=== PATIENT | female | born 1940 | race Caucasian/White ===

== ENCOUNTER 2018-10-12 00:44 | Emergency (ER) | payer MEDICARE, OTHER ==
[2018-10-12] MEDS ORDERED: methylPREDNISolone Sodium Succinate 125 MG/2 ML SDV IVPUSH ONE (01:14)
[2018-10-12] MEDS ORDERED: Albuterol/Ipratropium 3.0-0.5 MG/3 ML Neb Soln NEB ONE (01:14)
[2018-10-12] MEDS ORDERED: Sodium Chloride 0.9% 10 ML Syringe FLUSH PRN (01:14)
--- NOTE | 2018-10-12 01:21 | EDM.PDOC ---
ED HPI GENERAL MEDICAL PROBLEM - General Chief Complaint: Respiratory Problem Stated Complaint: SOB Time Seen by Provider: 10/12/18 01:12 Source of Information: Reports: Patient, Family (Daughter), RN Notes Reviewed - History of Present Illness INITIAL COMMENTS - FREE TEXT/NARRATIVE: 78-year-old female comes in with shortness of breath. She first became ill about 8-10 days ago. She was first hospitalized at [facility] with influenza and then pneumonia. Apparently was transferred to [facility] at some point and just discharged from [facility] yesterday afternoon. She states that she been off oxygen for about 2 days and seemed to be okay although not up to prehospital status. She then has come home to her daughter's residence here in [place] to live with her until getting back to normal. However trying to sleep tonight she became more short of breath and comes now to the ED with that concern. No chest pain. No recent fever or chills. She still does have a mildly scratchy throat. She was getting neb treatments in the hospital but was not sent home with a nebulizer. She states she has history of "scarring of her lungs". She does not smoke. She does have history of asthma. She also has history of bladder cancer with removal of her bladder last April about 6 months ago and prior chemotherapy. She states she also was anemic when admitted to the [facility] and given 2 units of blood at that time. Back Pain Score (Numeric/FACES): 4 - Related Data Allergies Allergy/AdvReac Type Severity Reaction Status Date / Time Penicillins Allergy Hives Verified 10/12/18 00:53 Home Meds: Home Meds predniSONE [Prednisone] 20 mg PO DAILY #5 tablet 10/12/18 [Rx] Past Medical History HEENT History: Reports: Hard of Hearing, Impaired Vision Other HEENT History: Wears glasses Cardiovascular History: Reports: High Cholesterol, Hypertension Respiratory History: Reports: Other (See Below) Other Respiratory History: Lung scarring PULP TESTER History: Reports: Musculoskeletal History: Reports: Back Pain, Chronic Endocrine/Metabolic History: Reports: Diabetes, Type II Hematologic History: Reports: Blood Transfusion(s) Oncologic (Cancer) History: Reports: Bladder - Infectious Disease History Infectious Disease History: Reports: C-Difficile - Past Surgical History HEENT Surgical History: Reports: Naso-Sinus Surgery GI Surgical History: Reports: Appendectomy Female Surgical History: Reports: Hysterectomy, Other (See Below) Other Female Surgeries/Procedures: Bladder removal Musculoskeletal Surgical History: Reports: Shoulder Surgery Social & Family History - Tobacco Use Smoking Status *Q: Never Smoker - Recreational Drug Use Recreational Drug Use: No ED ROS GENERAL - Review of Systems Review Of Systems: See Below Constitutional: Denies: Fever, Chills, Diaphoresis HEENT: Reports: Throat Pain. Denies: Rhinitis, Sinus Problem (Mildly scratchy throat) Respiratory: Reports: Shortness of Breath, Wheezing, Cough (Mostly nonproductive ) Cardiovascular: Reports: Chest Pain (With very deep breathing), Dyspnea on Exertion Endocrine: Reports: Fatigue GI/Abdominal: Denies: Abdominal Pain, Nausea, Vomiting : Reports: Other (Has a urostomy) Musculoskeletal: Denies: Leg Pain Skin: Reports: No Symptoms Neurological: Reports: Dizziness, Weakness. Denies: Trouble Speaking ( Generalized) ED EXAM, GENERAL - Physical Exam Exam: See Below General Appearance: Alert, Mild Distress Eye Exam: Bilateral Eye: PERRL Throat/Mouth: Normal Inspection, Normal Oropharynx Head: Atraumatic Neck: Supple, Full Range of Motion, Other (No JVD) Respiratory/Chest: Respiratory Distress, Wheezing (Mild bilateral). No: Rales, Rhonchi (Mild tachypnea) Cardiovascular: Regular Rate, Rhythm GI/Abdominal: Soft, Non-Tender, Other (Urostomy right abdomen) Back Exam: No: CVA Tenderness (L), CVA Tenderness (R) Extremities: No: Pedal Edema, Leg Pain, Increased Warmth, Redness Neurological: Alert, Oriented, No Motor/Sensory Deficits Skin Exam: Warm, Dry, Normal Color Course - Vital Signs Last Recorded V/S: Last Vital Signs Temp 97.5 F 10/12/18 00:49 Pulse 91 10/12/18 00:49 Resp 19 10/12/18 00:49 BP 150/84 H 10/12/18 00:49 Pulse Ox 99 10/12/18 01:14 - Orders/Labs/Meds Orders: Active Orders 24 hr Category Date Time Status Oxygen Therapy [RC] ASDIRECTED Care 10/12/18 01:14 Active Peripheral IV Care [RC] . DIRECTED Care 10/12/18 01:14 Active RT Aerosol Therapy [RC] ASDIRECTED Care 10/12/18 01:14 Active RT Aerosol Therapy [RC] ASDIRECTED Care 10/12/18 02:20 Active Chest 1V Frontal [CR] Stat Exams 10/12/18 01:13 Taken PRO B-TYPE NATRIUR PEPT,BNPPRO [CHEM] Stat Lab 10/12/18 01:25 Received Sodium Chloride 0.9% [Saline Flush] Med 10/12/18 01:14 Active 10 ml FLUSH ASDIRECTED PRN Peripheral IV Insertion Adult [OM.PC] Stat Oth 10/12/18 01:14 Ordered Medication Orders Sodium Chloride (Saline Flush) 10 ml FLUSH ASDIRECTED PRN PRN Reason: Keep Vein Open Last Admin: 10/12/18 01:30 Dose: 10 ml Labs: Laboratory Tests 10/12/18 10/12/18 10/12/18 Range/Units 01:25 01:25 01:25 WBC 6.56 (3.98-10.04) K/mm3 RBC 3.57 L (3.98-5.22) M/mm3 Hgb 10.8 L (11.2-15.7) gm/L Hct 33.2 L (34.1-44.9) % MCV 93.0 (79.4-94.8) fl MCH 30.3 (25.6-32.2) pg MCHC 32.5 (32.2-35.5) g/dl RDW Std Deviation 45.2 (36.4-46.3) fL Plt Count 287 (182-369) K/mm3 MPV 9.6 (9.4-12.3) fl Neut % (Auto) 71.7 H (34.0-71.1) % Lymph % (Auto) 16.2 L (19.3-51.7) % [place] % (Auto) 9.0 (4.7-12.5) % Eos % (Auto) 0.9 (0.7-5.8) Baso % (Auto) 0.2 (0.1-1.2) % Neut # (Auto) 4.71 (1.56-6.13) K/mm3 Lymph # (Auto) 1.06 L (1.18-3.74) K/mm3 [place] # (Auto) 0.59 H (0.24-0.36) K/mm3 Eos # (Auto) 0.06 (0.04-0.36) K/mm3 Baso # (Auto) 0.01 (0.01-0.08) K/mm3 Manual Slide Review Abnormal smear Sodium 141 (136-145) mEq/L Potassium 3.4 L (3.5-5.1) mEq/L Chloride 104 (98-107) mEq/L Carbon Dioxide 27 (21-32) mEq/L Anion Gap 13.4 (5-15) BUN 19 H (7-18) mg/dL Creatinine 1.0 (0.55-1.02) mg/dL Est Cr Clr Drug Dosing 33.30 mL/min Estimated GFR (MDRD) 54 (>60) mL/min BUN/Creatinine Ratio 19.0 H (14-18) Glucose 113 (83-115) mg/dL Calcium 8.8 (8.5-10.1) mg/dL Total Bilirubin 0.5 (0.2-1.0) mg/dL AST 18 (15-37) U/L ALT 43 (14-59) U/L Alkaline Phosphatase 141 H (46-116) U/L C-Reactive Protein 14.1 H* (<1.0) mg/dL Total Protein 6.9 (6.4-8.2) g/dl Albumin 2.1 L (3.4-5.0) g/dl Globulin 4.8 gm/dL Albumin/Globulin Ratio 0.4 L (1-2) Meds: Medications Generic Name Dose Route Start Last Admin Trade Name Freq PRN Reason Stop Dose Admin Sodium Chloride 10 ml 10/12/18 01:14 10/12/18 01:30 Saline Flush FLUSH 10 ml ASDIRECTED PRN Administration Keep Vein Open Discontinued Medications Generic Name Dose Route Start Last Admin Trade Name Freq PRN Reason Stop Dose Admin Albuterol 2.5 mg 10/12/18 02:20 Proventil Neb Soln [facility] 10/12/18 02:21 ONETIME ONE Albuterol/Ipratropium 3 ml 10/12/18 01:14 10/12/18 01:37 Duoneb 3.0-0.5 Mg/3 Ml [facility] 10/12/18 01:15 3 ml ONETIME ONE Administration Heparin Sodium (Porcine) 500 units 10/12/18 02:15 Heparin Lock Flush 100 Units/Ml FLUSH 10/12/18 02:16 ONETIME ONE Methylprednisolone Sodium Succinate 125 mg 10/12/18 01:14 10/12/18 01:30 Solu-Medrol IVPUSH 10/12/18 01:15 125 mg ONETIME ONE Administration - Re-Assessments/Exams Free Text/Narrative Re-Assessment/Exam: 10/12/18 01:22 gambling monitor shows sinus rhythm rate 90-92, O2 sats 98-100% on 1 L nasal cannula. 10/12/18 02:23. White blood count has come back normal, hemoglobin 10.8, stable with hemoglobin at [place] noted to be 10.3. Chest x-ray shows some scarring both bases but nothing that looks like acute infiltrate at this time. We did give her a DuoNeb treatment that did seem to help her. With 1 L O2 her sats jumped up to 99-100%, they were about 93-94% on room air. We did also give Solu-Medrol 125 mg IV. RT is going to send nebulizer home with her. We'll have her continue home nebs every 6-8 hours as needed. We'll have her continue with prednisone 20 mg daily for the next 5 days. She has a follow-up with her regular physician in one week. Patient and her daughter are comfortable with this plan. She has another dose or 2 of Levaquin 750 mg to take. She is taking that every other day. Departure - Departure Time of Disposition: 02:11 Disposition: Home, Self-Care 01 Condition: Fair Clinical Impression: Exacerbation of asthma Qualifiers: Asthma severity: moderate - Discharge Information Prescriptions: predniSONE [Prednisone] 20 mg PO DAILY #5 tablet Instructions: Asthma, Adult Referrals: PCP,Not In Area [Primary Care Provider] - Forms: ED Department Discharge Additional Instructions: Albuterol nebulizer treatments every 6-8 hours as needed for wheezing or difficulty breathing. Continue the current antibiotic as prescribed, continue other medications as previously prescribed. Prednisone 20 mg every morning for the next 5 days. I'll up with your regular medical provider next Thursday as planned. Return to ED as needed if symptoms worsening in any way. - My Orders Last 24 Hours: My Active Orders 10/12/18 01:13 Chest 1V Frontal [CR] Stat 10/12/18 01:14 Oxygen Therapy [RC] ASDIRECTED Peripheral IV Care [RC] . DIRECTED RT Aerosol Therapy [RC] ASDIRECTED Sodium Chloride 0.9% [Saline Flush] 10 ml FLUSH ASDIRECTED PRN Peripheral IV Insertion Adult [OM.PC] Stat 10/12/18 01:25 PRO B-TYPE NATRIUR PEPT,BNPPRO [CHEM] Stat 10/12/18 02:20 RT Aerosol Therapy [RC] ASDIRECTED - Assessment/Plan Last 24 Hours: My Active Orders 10/12/18 01:13 Chest 1V Frontal [CR] Stat 10/12/18 01:14 Oxygen Therapy [RC] ASDIRECTED Peripheral IV Care [RC] . DIRECTED RT Aerosol Therapy [RC] ASDIRECTED Sodium Chloride 0.9% [Saline Flush] 10 ml FLUSH ASDIRECTED PRN Peripheral IV Insertion Adult [OM.PC] Stat 10/12/18 01:25 PRO B-TYPE NATRIUR PEPT,BNPPRO [CHEM] Stat 10/12/18 02:20 RT Aerosol Therapy [RC] ASDIRECTED
[2018-10-12] MEDS ORDERED: Albuterol 0.083% 2.5 MG/3 ML Neb Soln NEB ONE (02:20)
--- NOTE | 2018-10-12 06:20 | CR ---
Chest: Frontal view of the chest was obtained. Comparison: No previous study. Heart size is normal. Tortuous thoracic aorta is seen. Right-sided infusion catheter is seen. Lungs show minimal basilar atelectasis. No acute parenchymal change is seen. Previous left shoulder surgery is noted. Impression: 1. Incidental findings. Nothing acute is seen. Diagnostic code #2
== END 2018-10-12 02:34 | disposition home or self-care (01) ==
LOC: JD.ED 00:44
DX: J45.901 Unspecified asthma with (acute) exacerbation (principal); I10 Essential (primary) hypertension; E78.00 Pure hypercholesterolemia, unspecified; E11.9 Type 2 diabetes mellitus without complications; Z79.899 Other long term (current) drug therapy; Z88.0 Allergy status to penicillin
CPT/HCPCS: 36415; 71045; 80053; 83880; 85025; 86140; 94640; 96374; 99285; J1642; J2930; 99284; J7620-GY